=== PATIENT | female | born 1960 | race African-American/Black ===

== ENCOUNTER 2020-01-27 07:15 | Emergency (ER) | payer OTHER ==
[~2020-01-27] VITALS: Ht 162.6 cm; Wt 81.6 kg
[~2020-01-27 07:15] MED LIST: HYDR25TA PO; LOSA25TA32 PO
[2020-01-27 07:26] VITALS: BP 142/84
--- NOTE | 2020-01-27 07:36 | NUR ---
59/F C/O CONSTANT, SHARP RIGHT FLANK PAIN X1 WEEK, ACUTE ONSET. DENIES INJURY/TRAUMA, UTI SYMPTOMS, N/V, F/C. DENIES HX KIDNEY STONES. STATIONARY AT WORK, STATES SITTING MAKES IT WORSE. NO RADIATION OF PAIN. VSS. PT HAS ALREADY PROVIDED URINE SAMPLE. MED HX: DM, HTN
--- NOTE | 2020-01-27 07:42 | NUR ---
DR. ROQUE EVALUATING PT AT BEDSIDE
[2020-01-27] MEDS ORDERED: LIDOCAINE MPF 1% 10 MG/ML VIAL INJ ONE (07:50)
[2020-01-27] MEDS ORDERED: IBUPROFEN 400 MG TAB PO ONE (07:50)
[2020-01-27 08:07] LABS: APPEARANCE,URINE CLEAR (CLEAR); BILIRUBIN,URINE NEGATIVE (NEGATIVE); BLOOD, URINE NEGATIVE (NEGATIVE); COLOR,URINE YELLOW (YELLOW); LEUKOCYTE ESTERASE ,URINE NEGATIVE (NEGATIVE); NITRITE, URINE NEGATIVE (NEGATIVE); PH,URINE 6.5 (5.0-9.0); UGLUCOSE NEGATIVE (NEGATIVE)
--- NOTE | 2020-01-27 08:20 | NUR ---
US tech at bedside for exam.
--- NOTE | 2020-01-27 08:21 | NUR ---
PLATFORM CONSULTANT AT BEDSIDE FOR BLOOD DRAW
--- NOTE | 2020-01-27 08:26 | NUR ---
U/S TECH AT BEDSIDE
[2020-01-27 08:35] LABS: BASOPHILS # (AUTO) 0.1 K/uL (0.00-0.22); EOSINOPHILS # (AUTO) 0.1 K/uL (0-0.4); EOSINOPHILS % (AUTO) 1.4 % (0.0-4.0); HEMATOCRIT 39.5 % (36-48); HEMOGLOBIN 13.2 g/dL (12.0-16.0); LYMPHOCYTES % (AUTO) 29.2 % (20.5-51.1); MEAN CORPUSCULAR HEMOGLOBIN 27 pg (27-31); MEAN CORPUSCULAR HGB CONC 34 g/dL (33-37); MEAN CORPUSCULAR VOLUME 79.7 fL (80-94); MONOCYTES # (AUTO) 0.3 K/uL (0.8-1.0); NEUTROPHILS # (AUTO) 4.4 K/uL (1.8-7.7); NEUTROPHILS % (AUTO) 63.4 % (42.2-75.2); PLATELET COUNT (AUTO) 193 K/uL (140-450); RED BLOOD CELL COUNT(AUTO) 4.96 MIL/uL (4.20-5.40); RED CELL DISTRIBUTION WIDTH 16.1 % (11.6-13.7); WHITE BLOOD COUNT (AUTO) 6.9 K/uL (4.8-10.8)
[2020-01-27 09:03] LABS: ALBUMIN 3.4 g/dL (3.4-5.0); ANION GAP 9.4 (8-16); CARBON DIOXIDE 32.2 mmol/L (21-32); CREATININE 1.1 mg/dL (0.6-1.3); POTASSIUM 3.6 mmol/L (3.5-5.1); TOTAL BILIRUBIN 0.6 mg/dL (0.0-1.0)
--- NOTE | 2020-01-27 09:18 | NUR ---
DR. ROQUE SPEAKING WITH PT AT BEDSIDE
[2020-01-27 09:28] VITALS: BP 133/69
--- NOTE | 2020-01-27 09:28 | NUR ---
Patient discharged with v/s stable. Written and verbal after care instructions given and explained. Patient verbalized understanding. Ambulatory with steady gait. All questions addressed prior to discharge. Advised to follow up with PMD.
== END 2020-01-27 09:28 | disposition home or self-care (01) ==
LOC: MED 07:15
DX: M62.830 Muscle spasm of back (principal); E11.9 Type 2 diabetes mellitus without complications; I10 Essential (primary) hypertension; Z79.899 Other long term (current) drug therapy; Z88.5 Allergy status to narcotic agent
CPT/HCPCS: 20552; 36415; 76770; 80053; 81003; 85025; 99284; J2001; Q0092

== ENCOUNTER 2020-11-07 08:58 | Emergency (ER) | payer OTHER ==
[~2020-11-07] VITALS: Ht 162.6 cm; Wt 81.6 kg
--- NOTE | 2020-11-07 09:00 | NUR ---
Ambulated to bed 9
[2020-11-07 09:08] VITALS: BP 152/73
[2020-11-07] MEDS ORDERED: ASPIRIN 325 MG TAB PO ONE (09:20)
--- NOTE | 2020-11-07 09:35 | NUR ---
@[id number] Received care of 60 y/o female pt coming from home c/o sharp, burning left-sided chest pain radiating to the left arm x 1 week. Pt reports she has been taking Tylenol for the pain "that usually does it" but no relief since 11 pm last night. Pt has Med Hx: Htn, DM, GERD & has been told to have bradycardia. Sx Hx left wrist. NKA. Pt was hooked to the site monitor, VS, blood drawn, notified, hydrometeorological technician called for EKG.
[2020-11-07 09:37] LABS: BASOPHILS % (AUTO) 0.7 % (0.0-2.0); EOSINOPHILS # (AUTO) 0.1 K/uL (0-0.4); EOSINOPHILS % (AUTO) 1.2 % (0.0-4.0); HEMATOCRIT 43.3 % (36-48); HEMOGLOBIN 14.7 g/dL (12.0-16.0); LYMPHOCYTES % (AUTO) 29.7 % (20.5-51.1); MEAN CORPUSCULAR HEMOGLOBIN 27 pg (27-31); MEAN CORPUSCULAR HGB CONC 34 g/dL (33-37); MEAN CORPUSCULAR VOLUME 78.6 fL (80-94); MONOCYTES # (AUTO) 0.3 K/uL (0.8-1.0); MONOCYTES % (AUTO) 4.2 % (1.7-9.3); NEUTROPHILS # (AUTO) 4.4 K/uL (1.8-7.7); NEUTROPHILS % (AUTO) 64.2 % (42.2-75.2); PLATELET COUNT (AUTO) 199 K/uL (140-450); RED BLOOD CELL COUNT(AUTO) 5.51 MIL/uL (4.20-5.40); WHITE BLOOD COUNT (AUTO) 6.8 K/uL (4.8-10.8)
[2020-11-07 09:52] LABS: ALBUMIN 3.9 g/dL (3.4-5.0); ANION GAP 11.6 (8-16); CARBON DIOXIDE 29.9 mmol/L (21-32); CREATININE 0.9 mg/dL (0.6-1.3); POTASSIUM 3.5 mmol/L (3.5-5.1); TOTAL BILIRUBIN 0.6 mg/dL (0.0-1.0)
[2020-11-07 13:50] VITALS: BP 148/77
--- NOTE | 2020-11-07 13:51 | NUR ---
Patient discharged with v/s stable. Written and verbal after care instructions given and explained. Patient alert, oriented and verbalized understanding of instructions. Ambulatory with steady gait. All questions addressed prior to discharge. ID band removed. Patient advised to follow up with PMD. Rx of NAPROSYN 500MG given. Patient educated on indication of medication including possible reaction and side effects. Opportunity to ask questions provided and answered.
== END 2020-11-07 13:51 | disposition home or self-care (01) ==
LOC: MED 08:58
DX: R07.9 Chest pain, unspecified (principal); M79.602 Pain in left arm; E11.9 Type 2 diabetes mellitus without complications; I10 Essential (primary) hypertension; Z88.5 Allergy status to narcotic agent
CPT/HCPCS: 36415; 71045; 80053; 83690; 84484; 85025; 93005; 99285

== ENCOUNTER 2021-04-02 07:02 | Emergency (ER) | payer OTHER ==
[~2021-04-02] VITALS: Ht 162.6 cm; Wt 81.6 kg
[2021-04-02 07:09] VITALS: BP 126/75
--- NOTE | 2021-04-02 07:29 | NUR ---
60 YEAR OLD FEMALE COMPLAINS OF ABDOMINAL PAIN X 2 DAYS. PT STATES SHE ALSO HAS DIARRHEA, BUT DENIES NAUSEA/VOMITTING, DENIES BLOOD IN STOOL. BOWEL SOUNDS NORMOACTIVE, NONTENDER. PT AOX4, BREATHING EVEN AND UNLABORED, SKIN WARM AND DRY. BED IN LOWEST POSITION, LOCKED, BED RAIL UPX1. PMH - DM2, HTN ALLERGIES - CODEINE
[2021-04-02 07:42] LABS: APPEARANCE,URINE CLEAR (CLEAR); BILIRUBIN,URINE NEGATIVE (NEGATIVE); BLOOD, URINE NEGATIVE (NEGATIVE); COLOR,URINE YELLOW (YELLOW); NITRITE, URINE NEGATIVE (NEGATIVE); UGLUCOSE NEGATIVE (NEGATIVE)
[2021-04-02 07:59] LABS: LEUKOCYTE ESTERASE ,URINE 1+ (NEGATIVE); RBC,URINE 0-5 /HPF (0-5); WBC,URINE 0-5 /HPF (0-5)
[2021-04-02] MEDS ORDERED: DICYCLOMINE 20 MG/2 ML VIAL IM ONE (08:00)
[2021-04-02 08:13] LABS: BASOPHILS % (AUTO) 0.5 % (0.0-2.0); EOSINOPHILS # (AUTO) 0.1 K/uL (0-0.4); EOSINOPHILS % (AUTO) 1.2 % (0.0-4.0); HEMATOCRIT 42.2 % (36-48); HEMOGLOBIN 14.3 g/dL (12.0-16.0); LYMPHOCYTES % (AUTO) 24.7 % (20.5-51.1); MEAN CORPUSCULAR HEMOGLOBIN 27 pg (27-31); MEAN CORPUSCULAR HGB CONC 34 g/dL (33-37); MEAN CORPUSCULAR VOLUME 78.5 fL (80-94); MONOCYTES # (AUTO) 0.6 K/uL (0.8-1.0); MONOCYTES % (AUTO) 7.6 % (1.7-9.3); NEUTROPHILS # (AUTO) 5.2 K/uL (1.8-7.7); PLATELET COUNT (AUTO) 207 K/uL (140-450); RED BLOOD CELL COUNT(AUTO) 5.38 MIL/uL (4.20-5.40); RED CELL DISTRIBUTION WIDTH 16.3 % (11.6-13.7); WHITE BLOOD COUNT (AUTO) 7.9 K/uL (4.8-10.8)
[2021-04-02 08:26] LABS: ALBUMIN 3.9 g/dL (3.4-5.0); ANION GAP 13.4 (8-16); CARBON DIOXIDE 28.3 mmol/L (21-32); CREATININE 0.8 mg/dL (0.6-1.3); POTASSIUM 3.7 mmol/L (3.5-5.1); TOTAL BILIRUBIN 0.8 mg/dL (0.0-1.0)
--- NOTE | 2021-04-02 09:00 | NUR ---
PATIENT STATES THAT SHE IS FEELING A LITTLE BETTER AFTER MEDICATION. STATES 8/10 ABD PAIN
[2021-04-02] MEDS ORDERED: HYDROcodone/APAP 5/325 MG 1 TAB TAB PO ONE (09:05)
[2021-04-02] MEDS ORDERED: NITR100C7 PO (10:05)
[2021-04-02] MEDS ORDERED: ACET-8386 PO (10:05)
[2021-04-02] MEDS ORDERED: BEN10 PO (10:05)
[2021-04-02 10:20] VITALS: BP 130/87
--- NOTE | 2021-04-02 10:20 | NUR ---
Patient discharged with v/s stable. Written and verbal after care instructions about urinary tract infection, abdominal pain given and explained. Patient alert, oriented and verbalized understanding of instructions. Ambulatory with steady gait. All questions addressed prior to discharge. ID band removed. Patient advised to follow up with PMD. Rx of norco, bentyl, macrobid given. Patient educated on indication of medication including possible reaction and side effects. Opportunity to ask questions provided and answered.
== END 2021-04-02 10:20 | disposition home or self-care (01) ==
LOC: MED 07:02
DX: N39.0 Urinary tract infection, site not specified (principal); R10.9 Unspecified abdominal pain
CPT/HCPCS: 36415; 74176; 80053; 81001; 81025; 83690; 85025; 87086; 96372; 99284; J0500

== ENCOUNTER 2022-01-06 11:21 | Emergency (ER) | payer OTHER ==
[~2022-01-06] VITALS: Ht 162.6 cm; Wt 77.1 kg
[~2022-01-06 11:21] MED LIST changes: +ACET-8386 PO; +BEN10 PO; +NITR100C7 PO
[2022-01-06 11:28] VITALS: BP 139/57
--- NOTE | 2022-01-06 11:36 | NUR ---
DR. CASTILLO EVALUATING PT
--- NOTE | 2022-01-06 11:38 | NUR ---
61Y FEMALE BIB SELF DUE TO R FOOT 5TH DIGIT PAIN S/P HITTING IT ON A BED POST X3 WEEKS AGO. SWELLING NOTED. PT DENIES ANY LOSS OF SENSATION AND STATED "TOE FEELS LIKE IT IS BURNING" PMH: DM, HTN ALLERGIES: CODEINE
[2022-01-06 12:24] VITALS: BP 131/62
--- NOTE | 2022-01-06 12:25 | NUR ---
Patient discharged with v/s stable. Written and verbal after care instructions given FOR MUSCULOSKELETAL PAIN and explained. Patient verbalized understanding. Ambulatory with steady gait. All questions addressed prior to discharge. Advised to follow up with PMD.
== END 2022-01-06 12:24 | disposition home or self-care (01) ==
LOC: MED 11:21
DX: M79.671 Pain in right foot (principal); M79.674 Pain in right toe(s)
CPT/HCPCS: 73620; 99283

== ENCOUNTER 2022-03-04 07:28 | Emergency (ER) | payer OTHER ==
[~2022-03-04] VITALS: Ht 162.6 cm; Wt 84.8 kg
[2022-03-04 07:39] VITALS: BP 152/86
[2022-03-04] MEDS ORDERED: KETOROLAC 60 MG/2 ML VIAL IM ONE (07:50)
[2022-03-04] MEDS ORDERED: ACET-8386 PO (08:03)
[2022-03-04] MEDS ORDERED: IBUP-2213 PO (08:03)
[2022-03-04 09:05] VITALS: BP 142/90
== END 2022-03-04 09:05 | disposition home or self-care (01) ==
LOC: MED 07:28
DX: M79.605 Pain in left leg (principal); E11.9 Type 2 diabetes mellitus without complications; I10 Essential (primary) hypertension; Z79.899 Other long term (current) drug therapy; Z98.890 Other specified postprocedural states; Z88.5 Allergy status to narcotic agent
CPT/HCPCS: 93971; 96372; 99284; J1885; Q0092

== ENCOUNTER 2022-08-27 07:00 | Emergency (ER) | payer OTHER ==
[~2022-08-27] VITALS: Ht 162.6 cm; Wt 83.5 kg
[~2022-08-27 07:00] MED LIST changes: +IBUP-2213 PO
[2022-08-27 07:09] VITALS: BP 136/80
--- NOTE | 2022-08-27 07:12 | NUR ---
to lobby a/w bed ambulatory
[2022-08-27] MEDS ORDERED: LIDO4CRE18 TP (09:00)
--- NOTE | 2022-08-27 09:04 | NUR ---
61/F PRESENTS TO ED WITH C/O BILATERAL KNEE PAIN WORSE ON LEFT, S/P TRIP AND FALL 2 WEEKS AGO. PATIENT DENIES HEAD/NECK INJURY OR LOC.PATIENT AMBULATORY UPON ARRIVAL.
--- NOTE | 2022-08-27 09:10 | NUR ---
Patient discharged with v/s stable. Written and verbal after care instructions ABOUT RICE THERAPY given and explained. Patient alert, oriented and verbalized understanding of instructions. Ambulatory with steady gait. All questions addressed prior to discharge. ID band removed. Patient advised to follow up with PMD. Rx of ANECREAM given. Patient educated on indication of medication including possible reaction and side effects. Opportunity to ask questions provided and answered.
== END 2022-08-27 09:10 | disposition home or self-care (01) ==
LOC: MED 07:00
DX: S80.02XA Contusion of left knee, initial encounter (principal); S80.211A Abrasion, right knee, initial encounter; S50.812A Abrasion of left forearm, initial encounter; W18.30XA Fall on same level, unspecified, initial encounter; Y93.89 Activity, other specified; Y92.89 Other specified places as the place of occurrence of the external cause; Y99.8 Other external cause status
CPT/HCPCS: 73562; 99283

== ENCOUNTER 2023-03-12 06:45 | Emergency (ER) | payer OTHER ==
[~2023-03-12] VITALS: Ht 162.6 cm; Wt 79.4 kg
[~2023-03-12 06:45] MED LIST changes: -ACET-8386 PO; +ACET-8905 PO; +LIDO4CRE18 TP
[2023-03-12 06:51] VITALS: BP 123/65
[2023-03-12] MEDS ORDERED: FAMOTIDINE 20 MG TAB PO ONE (07:25)
[2023-03-12] MEDS ORDERED: ACETAMINOPHEN EXTRA STRENGTH 500 MG TAB PO ONE (07:25)
--- NOTE | 2023-03-12 07:33 | NUR ---
PATIENT WENT TO RAD.
--- NOTE | 2023-03-12 07:49 | NUR ---
PT BROUGHT BACK VIA W/C TO BED 4
--- NOTE | 2023-03-12 08:00 | NUR ---
62YO FEMALE PT C/O BURNING/SHARP GEN ABD PAIN L5ELAWN. REPORTS SUDDEN CONSTANT ONSET W/ MILD CONSTIPATION. STATES GOING TO PCP AND TOLD SHE HAD FATTY LIVER. NOTES RECENT 10lbs WEIGHT LOSS. DENIES N/V, FEVER, CHILLS OR RELIEF AFTER TAKING PEPCID. PT AAOX4, NO VISIBLE DISTRESS. HOB POSITIONED PER COMFORT HX: DM2, HTN ALLERGIES: CODEINE
[2023-03-12 08:04] LABS: APPEARANCE,URINE CLEAR (CLEAR); BILIRUBIN,URINE NEGATIVE (NEGATIVE); BLOOD, URINE NEGATIVE (NEGATIVE); COLOR,URINE YELLOW (YELLOW); LEUKOCYTE ESTERASE ,URINE 2+ (NEGATIVE); NITRITE, URINE NEGATIVE (NEGATIVE); UGLUCOSE NEGATIVE (NEGATIVE)
[2023-03-12 08:15] LABS: BASOPHILS # (AUTO) 0.1 K/uL (0.00-0.22); BASOPHILS % (AUTO) 1.1 % (0.0-2.0); EOSINOPHILS # (AUTO) 0.1 K/uL (0-0.4); EOSINOPHILS % (AUTO) 1.5 % (0.0-4.0); HEMATOCRIT 40.6 % (36-48); HEMOGLOBIN 13.8 g/dL (12.0-16.0); LYMPHOCYTES # (AUTO) 2.3 K/uL (2.5-16.5); LYMPHOCYTES % (AUTO) 29.7 % (20.5-51.1); MEAN CORPUSCULAR HEMOGLOBIN 26 pg (27-31); MEAN CORPUSCULAR HGB CONC 34 g/dL (33-37); MEAN CORPUSCULAR VOLUME 77.1 fL (80-94); MONOCYTES # (AUTO) 0.4 K/uL (0.8-1.0); MONOCYTES % (AUTO) 5.7 % (1.7-9.3); NEUTROPHILS # (AUTO) 4.7 K/uL (1.8-7.7); PLATELET COUNT (AUTO) 219 K/uL (140-450); RED BLOOD CELL COUNT(AUTO) 5.27 MIL/uL (4.20-5.40); RED CELL DISTRIBUTION WIDTH 16.3 % (11.6-13.7); WHITE BLOOD COUNT (AUTO) 7.6 K/uL (4.8-10.8)
[2023-03-12 08:17] LABS: RBC,URINE 0-5 /HPF (0-5)
[2023-03-12 08:42] LABS: ALBUMIN 3.6 g/dL (3.4-5.0); ANION GAP 10.5 (8-16); CARBON DIOXIDE 29.1 mmol/L (21-32); CREATININE 0.9 mg/dL (0.6-1.3); POTASSIUM 3.6 mmol/L (3.5-5.1); TOTAL BILIRUBIN 0.8 mg/dL (0.0-1.0)
[2023-03-12 10:17] VITALS: BP 125/65
--- NOTE | 2023-03-12 10:31 | NUR ---
The patient's care was reviewed and supervised by [facility], RN.
--- NOTE | 2023-03-12 10:31 | NUR ---
Patient discharged with v/s stable. Written and verbal after care instructions FOR ABD PAIN,PANCREATITIS EATING PLAN AND FATTY LIVER DISEASE given and explained. Patient alert, oriented and verbalized understanding of instructions. Ambulatory with steady gait. All questions addressed prior to discharge. ID band removed. Patient advised to follow up with PMD. Rx of COLACE given. Opportunity to ask questions provided and answered.
--- NOTE | 2023-03-12 10:31 | NUR ---
Note jose luis in ED - 03/12/23 at 1036 by [facility] Patient discharged with v/s stable. Written and verbal after care instructions FOR ABD PAIN,PANCREATITIS EATING PLAN AND FATTY LIVER DISEASE given and explained. Patient verbalized understanding. Ambulatory with steady gait. All questions addressed prior to discharge. Advised to follow up with PMD.
[2023-03-12] MEDS ORDERED: LACT-103 PO (10:34)
== END 2023-03-12 10:31 | disposition home or self-care (01) ==
LOC: MED 06:45
DX: K59.00 Constipation, unspecified (principal); E11.9 Type 2 diabetes mellitus without complications; I10 Essential (primary) hypertension; Z79.899 Other long term (current) drug therapy; Z88.5 Allergy status to narcotic agent; Z98.890 Other specified postprocedural states
CPT/HCPCS: 36415; 76705; 80053; 81001; 83690; 85025; 87086; 99284; Q0092

== ENCOUNTER 2023-07-23 18:36 | Emergency (ER) | payer OTHER ==
[~2023-07-23] VITALS: Ht 162.6 cm; Wt 81.6 kg
[2023-07-23 18:45] VITALS: BP 127/83; PULSE 60; RESP 18; TEMP 97.2; O2SAT 99
[2023-07-23] MEDS ORDERED: ACETAMINOPHEN EXTRA STRENGTH 500 MG TAB PO ONE (19:25)
[2023-07-23 19:43] LABS: BILIRUBIN,URINE NEGATIVE (NEGATIVE); BLOOD, URINE NEGATIVE (NEGATIVE); COLOR,URINE YELLOW (YELLOW); LEUKOCYTE ESTERASE ,URINE 1+ (NEGATIVE); NITRITE, URINE NEGATIVE (NEGATIVE); PH,URINE 6.5 (5.0-9.0); PROTEIN,URINE NEGATIVE (NEGATIVE); UGLUCOSE NEGATIVE (NEGATIVE); UROBILINOGEN,URINE 0.2 EU/dL (0.2 - 1)
[2023-07-23 19:48] LABS: APPEARANCE,URINE HAZY (CLEAR)
[2023-07-23] MEDS ORDERED: CEPH-588 PO (19:58)
[2023-07-23 19:59] LABS: RBC,URINE NONE SEEN /HPF (0-5)
[2023-07-23 20:00] LABS: BACTERIA,URINE 2+ /HPF (None Seen); SQUAMOUS EPITHELIAL CELL,UR 4-10 (MOD) /LPF (0-3 (FEW))
[2023-07-23] MEDS ORDERED: DICL20GE TP (20:00)
[2023-07-23 20:16] VITALS: BP 127/83; PULSE 60; RESP 18; TEMP 97.2; O2SAT 99
== END 2023-07-23 20:16 | disposition home or self-care (01) ==
LOC: MED 18:36
DX: M54.10 Radiculopathy, site unspecified (principal); N39.0 Urinary tract infection, site not specified; E11.9 Type 2 diabetes mellitus without complications; I10 Essential (primary) hypertension; Z79.899 Other long term (current) drug therapy; Z79.2 Long term (current) use of antibiotics; Z79.1 Long term (current) use of non-steroidal anti-inflammatories (NSAID); Z88.5 Allergy status to narcotic agent
CPT/HCPCS: 73030; 81001; 87086; 99284

== ENCOUNTER 2023-08-14 12:42 | Emergency (ER) | payer OTHER ==
[~2023-08-14] VITALS: Ht 162.6 cm; Wt 81.6 kg
[~2023-08-14 12:42] MED LIST changes: +CEPH-588 PO; +DICL20GE TP
[2023-08-14 12:43] VITALS: BP 120/69; PULSE 59; RESP 15; TEMP 97.8; O2SAT 98
[2023-08-14] MEDS ORDERED: GABA300C PO (13:03)
[2023-08-14 13:20] VITALS: BP 120/69; PULSE 59; RESP 15; TEMP 97.8; O2SAT 98
== END 2023-08-14 13:24 | disposition home or self-care (01) ==
LOC: MED 12:42
DX: M54.10 Radiculopathy, site unspecified (principal); G89.29 Other chronic pain; E11.9 Type 2 diabetes mellitus without complications; I10 Essential (primary) hypertension; Z79.899 Other long term (current) drug therapy; Z79.2 Long term (current) use of antibiotics; Z79.1 Long term (current) use of non-steroidal anti-inflammatories (NSAID); Z88.5 Allergy status to narcotic agent
CPT/HCPCS: 99283